=== PATIENT | female | born 1970 | race Caucasian/White ===

== ENCOUNTER → 2020-04-15 09:46 | Outpatient (CLI) | payer OTHER, SELFPAY ==
--- NOTE | ~2020-04-15 | MR_ITS ---
EXAMINATION: MR shoulder RT wo con DATE: 04/15/2020 10:52 INDICATION: Generalized right shoulder pain. TECHNIQUE: Magnetic resonance imaging (MRI) of the right shoulder was performed without intravenous c ontrast. Sequences included axial PD-weighted FS FSE, coronal oblique PD-weighted FS FSE, coronal obl ique T2-weighted FS FSE, sagittal PD-weighted FS FSE, and sagittal T1-weighted SE. COMPARISON: None. FINDINGS: Coracoacromial arch: The acromion undersurface is flat in morphology (type I). The coracoacromial ligament is normal. Disp roportionate inflammatory changes at the right acromioclavicular joint including capsular thickening, synovitis and prominent marrow edema particularly at the lateral head of the clavicle relative to th e otherwise mild appearing osteoarthritis. Rotator cuff: Globular region of low signal intensity measuring approximately 9 x 6 x 3 mm although on prior radiog raphs appears to correspond to 2 separate lesions with amorphous calcific density. Appearance would b e most consistent with calcific tendinitis in the distal subscapularis tendon. The subscapularis tend on is otherwise normal. There is mild marrow edema in the underlying lesser tuberosity footplate. The supraspinatus, infraspinatus and teres minor tendons are normal. Normal rotator cuff muscle bulk and signal. Biceps tendon, glenoid labrum and glenohumeral cartilage: Long head of the biceps tendon is normal. Glenoid labrum is normal. Glenohumeral cartilage is normal. Fluid: Physiologic amount of fluid in the glenohumeral joint and biceps tendon sheath. No loose osteochondra l bodies. Slightly increased fluid signal in the subacromial/subdeltoid bursa consistent with minimal bursitis. Bones: Marrow signal is normal aside from at the previous noted regions of marrow edema at the acromioclavic ular joint and at the lesser tuberosity. No fracture or pathologic marrow replacing process. IMPRESSION: 1. Prominent arthritis at the right acromioclavicular joint with inflammatory change which appears di sproportionate to the degree of joint space narrowing and osteophytosis which suggests mild osteoarth ritis. In addition to osteoarthritis would include distal clavicular osteolysis, inflammatory arthrit is either septic, inflammatory as rheumatoid or psoriatic arthritis and crystalline arthropathy such as in the setting of gout or calcium pyrophosphate deposition (CPPD) disease 2. Calcific tendinitis at the distal subscapularis tendon with mild likely reactive edema in the unde rlying lesser tuberosity. Reviewed, dictated and finalized at location A. IMPRESSION: 1. Prominent arthritis at the right acromioclavicular joint with inflammatory c hange which appears disproportionate to the degree of joint space narrowing and osteophytosis which suggests mild osteoarthritis. In addition to osteoarthriti s would include distal clavicular osteolysis, inflammatory arthritis either sep tic, inflammatory as rheumatoid or psoriatic arthritis and crystalline arthropa thy such as in the setting of gout or calcium pyrophosphate deposition (CPPD) d isease 2. Calcific tendinitis at the distal subscapularis tendon with mild likely reac tive edema in the underlying lesser tuberosity.
== END ==
PROVIDERS: Visit Provider Nurse Practitioner Family
DX: M25.511 Pain in right shoulder (principal); M19.011 Primary osteoarthritis, right shoulder; M65.811 Other synovitis and tenosynovitis, right shoulder
CPT/HCPCS: 73221